=== PATIENT | male | born 1955 | race Caucasian/White ===

== ENCOUNTER 2023-03-15 18:56 | Inpatient (IN) | payer MEDICARE, OTHER ==
[2023-03-15 19:44] VITALS: BMI 27.5
[2023-03-15] MEDS ORDERED: P-EPHED 60MG/TRIPROLIDI 2.5MG TABLET PO PRN (20:16)
[2023-03-15] MEDS ORDERED: LOPERAMIDE HCL 2 MG CAPSULE PO PRN (20:16)
[2023-03-15] MEDS ORDERED: ACETAMINOPHEN 325 MG TABLET (FP) PO PRN (20:16)
[2023-03-15] MEDS ORDERED: NICOTINE POLACRILEX 2 MG GUM BUC PRN (20:16)
[2023-03-15] MEDS ORDERED: IBUPROFEN 400 MG TABLET (FP) PO PRN (20:16)
[2023-03-15] MEDS ORDERED: MAGNESIUM HYDROX 2400MG/30ML ORAL SUSPENSION 30 ML CUP PO PRN (20:16)
[2023-03-15] MEDS ORDERED: IBUPROFEN 600 MG TABLET (FP) PO PRN (20:16)
[2023-03-15] MEDS ORDERED: MAG HYDROX/AL HYDROX/SIMETH 30 ML UNIT-DOSE CUP PO PRN (20:16)
[2023-03-15] MEDS ORDERED: ONDANSETRON *ODT* 4 MG TABLET SL PRN (20:16)
[2023-03-15] MEDS ORDERED: guaiFENesin 600 MG TABLET.ER (FP) PO PRN (20:16)
[2023-03-15] MEDS ORDERED: BENZOCAINE/MENTHOL (CHLORASEPTIC ) LOZENGE MM PRN (20:16)
[2023-03-15] MEDS ORDERED: POLYETHYLENE GLYCOL (HEALTHYLAX) 3350 17 GM PACKET PO PRN (20:16)
[2023-03-15] MEDS ORDERED: BISMUTH SUBSALICYLATE 524 MG/30 ML PO PRN (20:16)
[2023-03-15] MEDS ORDERED: BENZONATATE 200 MG CAPSULE PO PRN (20:16)
[2023-03-15] MEDS: THIAMINE HCL 100 MG TABLET (FP) PO SCH (21:35)
[2023-03-15] MEDS: levETIRAcetam 500 MG TABLET (FP) PO SCH (21:35)
[2023-03-15] MEDS: diazePAM 5 MG TABLET PO PRN (21:35)
[2023-03-15] MEDS: MELATONIN 5 MG TABLETS PO SCH (21:49)
[2023-03-15] MEDS ORDERED: METOPROLOL TARTRATE 25 MG TABLET (FP) PO ONE (21:52)
[2023-03-15] MEDS ORDERED: ASPIRIN 81 MG CHEWABLE TABLETS PO ONE (22:00)
[2023-03-15] MEDS: ACETAMINOPHEN 325 MG TABLET (FP) PO PRN (22:02)
[2023-03-15] MEDS: diazePAM 5 MG TABLET PO SCH (23:05)
[2023-03-16] MEDS: diazePAM 5 MG TABLET PO SCH ×4 (05:56→22:27)
[2023-03-16] MEDS ORDERED: PRENATAL VITAMINS W/ FOLIC ACID TABLET (FP) PO SCH (10:00)
[2023-03-16] MEDS: levETIRAcetam 500 MG TABLET (FP) PO SCH ×2 (10:19→22:26)
[2023-03-16 11:00] LABS: CHLORIDE 105 mmol/L (98-107); POTASSIUM 3.8 mmol/L (3.5-5.1); SODIUM 135 mmol/L (136-145)
[2023-03-16 11:01] LABS: HEMATOCRIT 27.4 % (35.4-49); HEMOGLOBIN 8.8 GM/dL (11.7-16.9); MCH 28.5 pg (25.7-33.7); MEAN CELL VOLUME 89.2 fl (80-96); MEAN PLT VOLUME 6.9 fl (7.5-11.1); PLATELET COUNT 149 10^3/uL (134-434); RBC 3.07 M/mm3 (4.00-5.60); RDW 24.5 % (11.9-15.9); WHITE BLOOD COUNT 2.8 K/mm3 (4.0-10.0)
[2023-03-16 11:05] LABS: ALBUMIN 3.4 g/dl (3.4-5.0)
[2023-03-16 11:06] LABS: CALCIUM 8.8 mg/dL (8.5-10.1); GLUCOSE,RANDOM 96 mg/dL (74-106)
[2023-03-16 11:07] LABS: ANION GAP 1 mmol/L (4-13); BLOOD UREA NITROGEN 9.2 mg/dL (7-18); CO2 29 mmol/L (21-32)
[2023-03-16 11:08] LABS: CREATININE 0.9 mg/dL (0.55-1.3)
[2023-03-16 11:09] LABS: SGPT/ALT 12 U/L (13-61)
[2023-03-16 11:10] LABS: TOT PROT 6.9 g/dl (6.4-8.2)
[2023-03-16 11:11] LABS: ALK PHOS 70 U/L (45-117); SGOT/AST 20 U/L (15-37)
[2023-03-16 11:12] LABS: BILIRUBIN,TOTAL 0.5 mg/dL (0.2-1)
[2023-03-16] MEDS: diazePAM 5 MG TABLET PO PRN (20:18)
[2023-03-16] MEDS: APIXABAN 5 MG TABLET PO SCH (22:26)
[2023-03-16] MEDS: THIAMINE HCL 100 MG TABLET (FP) PO SCH (22:26)
[2023-03-16] MEDS: ATORVASTATIN CA 20 MG TABLET (FP) PO SCH (22:26)
[2023-03-16] MEDS: MELATONIN 5 MG TABLETS PO SCH (22:28)
[2023-03-17] MEDS: diazePAM 5 MG TABLET PO SCH ×3 (05:40→22:28)
[2023-03-17] MEDS: APIXABAN 5 MG TABLET PO SCH ×2 (10:28→22:28)
[2023-03-17] MEDS: PANTOPRAZOLE 40 MG TABLET PO SCH (10:28)
[2023-03-17] MEDS: FOLIC ACID 1 MG TABLET (FP) PO SCH (10:28)
[2023-03-17] MEDS: levETIRAcetam 500 MG TABLET (FP) PO SCH ×2 (10:28→22:28)
[2023-03-17] MEDS: ATORVASTATIN CA 20 MG TABLET (FP) PO SCH (22:28)
[2023-03-17] MEDS: THIAMINE HCL 100 MG TABLET (FP) PO SCH (22:28)
[2023-03-17] MEDS: MELATONIN 5 MG TABLETS PO SCH (22:28)
[2023-03-17] MEDS: LISINOPRIL 10 MG TABLET PO SCH (22:28)
[2023-03-18] MEDS: diazePAM 5 MG TABLET PO SCH ×2 (05:21→17:16)
[2023-03-18 08:48] LABS: BASO % 0.6 % (0-2.0); EOS % 2.1 % (0-4.5); HEMATOCRIT 27.8 % (35.4-49); HEMOGLOBIN 8.5 GM/dL (11.7-16.9); LYMPH % 34.5 % (8-40); MCH 27.7 pg (25.7-33.7); MCHC 30.6 g/dl (32.0-35.9); MEAN CELL VOLUME 90.7 fl (80-96); MEAN PLT VOLUME 6.9 fl (7.5-11.1); MONO % 8.8 % (3.8-10.2); PLATELET COUNT 168 10^3/uL (134-434); RBC 3.07 M/mm3 (4.00-5.60); RDW 23.8 % (11.9-15.9); WHITE BLOOD COUNT 3.8 K/mm3 (4.0-10.0)
[2023-03-18 09:37] LABS: ANISOCYTOSIS 1+; MACROCYTOSIS 1+
[2023-03-18] MEDS: PANTOPRAZOLE 40 MG TABLET PO SCH (09:55)
[2023-03-18] MEDS: LISINOPRIL 10 MG TABLET PO SCH ×2 (09:55→22:01)
[2023-03-18] MEDS: APIXABAN 5 MG TABLET PO SCH ×2 (09:55→22:01)
[2023-03-18] MEDS: amLODIPine BESYLATE 10 MG TABLET (FP) PO SCH (09:55)
[2023-03-18] MEDS: levETIRAcetam 500 MG TABLET (FP) PO SCH ×2 (09:55→22:01)
[2023-03-18] MEDS: FOLIC ACID 1 MG TABLET (FP) PO SCH (09:56)
[2023-03-18 21:04] VITALS: RESP 16
[2023-03-18] MEDS: THIAMINE HCL 100 MG TABLET (FP) PO SCH (22:01)
[2023-03-18] MEDS: ATORVASTATIN CA 20 MG TABLET (FP) PO SCH (22:01)
[2023-03-18] MEDS: MELATONIN 5 MG TABLETS PO SCH (22:02)
[2023-03-18] MEDS: ACETAMINOPHEN 325 MG TABLET (FP) PO PRN (22:03)
[2023-03-19] MEDS ORDERED: diazePAM 5 MG TABLET PO ONE (06:00)
[2023-03-19 09:35] VITALS: BP 139/89; PULSE 74; TEMP 97.3
[2023-03-19] MEDS: PANTOPRAZOLE 40 MG TABLET PO SCH (10:02)
[2023-03-19] MEDS: LISINOPRIL 10 MG TABLET PO SCH (10:02)
[2023-03-19] MEDS: amLODIPine BESYLATE 10 MG TABLET (FP) PO SCH (10:02)
[2023-03-19] MEDS: APIXABAN 5 MG TABLET PO SCH (10:02)
[2023-03-19] MEDS: FOLIC ACID 1 MG TABLET (FP) PO SCH (10:02)
== END 2023-03-19 10:24 | disposition home or self-care (01) | DRG 897 ==
LOC: YASAS 18:56 → Y6N 21:00
PROVIDERS: ADMIT Allergy & Immunology; ATTEND Surgery
PROC: HZ2ZZZZ Detoxification Services for Substance Abuse Treatment (ICD-10-PCS; principal; 2023-03-15)
DX: F10.230 Alcohol dependence with withdrawal, uncomplicated (principal); F17.210 Nicotine dependence, cigarettes, uncomplicated; D64.9 Anemia, unspecified; I48.91 Unspecified atrial fibrillation; Z79.01 Long term (current) use of anticoagulants; M54.50 Low back pain, unspecified; G89.29 Other chronic pain
CPT/HCPCS: 36415; 80053; 80307; 85025; 85027; 86780; 87635; 93005; 93010